=== PATIENT | female | born 1990 | race American Indian/Alaskan Native ===

== ENCOUNTER 2017-04-26 08:35 | Emergency (ER) | payer OTHER ==
[2017-04-26] MEDS ORDERED: NACL 0.9% 1000 ML 1,000 ML IV ONE (10:29)
[2017-04-26] MEDS ORDERED: NACL ONE (10:34)
--- NOTE | 2017-04-26 10:47 | Emergency Department Report ---
ED ENT HPI - General Chief complaint: Sore Throat Stated complaint: SORE THROAT/EAR PAIN Time Seen by Provider: 04/26/17 10:22 Source: patient Mode of arrival: Ambulatory Limitations: No Limitations - History of Present Illness Initial comments: PT c/o sore throat x 2 days. PT also reports R ear pain. PT states she had a sore throat 2 weeks ago and she thought she had strep throat but she was not seen. PT c/o fatigue and subjective fever. MD complaint: sore throat Onset/Timin -: Gradual, days(s) Location: R ear, throat Severity: severe Severity scale (0 -10): 8 Quality: sharp Consistency: constant Improves with: none Worsens with: swallowing, eating, other (talking ) Associated Symptoms: fever (subjective ), pain with swallowing, sore throat, discharge from ear (feels water leaking ). denies: rhinorrhea - Related Data Previous Rx's Medication Instructions Recorded Last Taken Type Amoxicillin/K Clav Tab [Augmentin 1 tab PO Q12HR #20 tab 04/26/17 Unknown Rx 875 mg] HYDROcodone/APAP 5-325 [[place] 1 each PO Q6HR PRN #14 tablet 04/26/17 Unknown Rx 5/325] Ibuprofen [Motrin] 600 mg PO Q8H PRN #15 tablet 04/26/17 Unknown Rx methylPREDNISolone [Medrol] 4 mg PO DAILY #1 tab.ds.pk 04/26/17 Unknown Rx Allergies Allergy/AdvReac Type Severity Reaction Status Date / Time No Known Allergies Allergy Verified 04/26/17 10:43 ED Dental HPI - General Chief complaint: Sore Throat Stated complaint: SORE THROAT/EAR PAIN Time Seen by Provider: 04/26/17 10:22 Source: patient Mode of arrival: Ambulatory Limitations: No Limitations - Related Data Previous Rx's Medication Instructions Recorded Last Taken Type Amoxicillin/K Clav Tab [Augmentin 1 tab PO Q12HR #20 tab 04/26/17 Unknown Rx 875 mg] HYDROcodone/APAP 5-325 [[place] 1 each PO Q6HR PRN #14 tablet 04/26/17 Unknown Rx 5/325] Ibuprofen [Motrin] 600 mg PO Q8H PRN #15 tablet 04/26/17 Unknown Rx methylPREDNISolone [Medrol] 4 mg PO DAILY #1 tab.ds.pk 04/26/17 Unknown Rx Allergies Allergy/AdvReac Type Severity Reaction Status Date / Time No Known Allergies Allergy Verified 04/26/17 10:43 ED Review of Systems ROS: Stated complaint: SORE THROAT/EAR PAIN Other details as noted in HPI Comment: All other systems reviewed and negative Constitutional: fever. denies: chills ENT: as per HPI, ear pain, throat pain Respiratory: denies: cough Gastrointestinal: denies: abdominal pain, nausea, vomiting Genitourinary: denies: abnormal menses ED Past Medical Hx - Past Medical History Previous Medical History?: Yes Additional medical history: sore throat pain - Surgical History Past Surgical History?: No - Social History Smoking Status: Never Smoker Substance Use Type: Alcohol, Non Opiate Pain, Prescribed - Medications Home Medications: Home Medications Medication Instructions Recorded Confirmed Last Taken Type Amoxicillin/K Clav Tab [Augmentin 1 tab PO Q12HR #20 tab 04/26/17 Unknown Rx 875 mg] HYDROcodone/APAP 5-325 [[place] 1 each PO Q6HR PRN #14 tablet 04/26/17 Unknown Rx 5/325] Ibuprofen [Motrin] 600 mg PO Q8H PRN #15 tablet 04/26/17 Unknown Rx methylPREDNISolone [Medrol] 4 mg PO DAILY #1 tab.ds.pk 04/26/17 Unknown Rx ED Physical Exam - General Limitations: No Limitations General appearance: alert, in no apparent distress - Head Head exam: Present: atraumatic, normocephalic, normal inspection - Eye Eye exam: Present: normal appearance, PERRL. Absent: conjunctival injection - ENT ENT exam: Present: mucous membranes moist, TM's normal bilaterally, normal external ear exam - Expanded ENT Exam Expanded Mouth exam: Absent: drooling, trismus Throat exam: Positive: tonsillar erythema, tonsillomegaly, tonsillar exudate, R peritonsillar mass - Neck Neck exam: Present: normal inspection, tenderness, full ROM, lymphadenopathy - Respiratory Respiratory exam: Present: normal lung sounds bilaterally. Absent: respiratory distress, chest wall tenderness - Cardiovascular Cardiovascular Exam: Present: normal rhythm, normal heart sounds - GI/Abdominal GI/Abdominal exam: Present: soft. Absent: tenderness - Extremities Exam Extremities exam: Present: normal inspection, full ROM - Back Exam Back exam: Present: normal inspection, full ROM. Absent: tenderness, CVA tenderness (R), CVA tenderness (L) - Neurological Exam Neurological exam: Present: alert, oriented X3 - Psychiatric Psychiatric exam: Present: normal affect, normal mood - Skin Skin exam: Present: warm, dry, intact ED Course Vital Signs 04/26/17 04/26/17 08:54 14:13 Temperature 98.9 F 98.9 F Pulse Rate 75 72 Respiratory 16 18 Rate Blood Pressure 120/82 Blood Pressure 129/83 [Left] O2 Sat by Pulse 100 100 Oximetry - Reevaluation(s) Reevaluation #1: 04/26/17 10:47 PT is aware of abnormal PE findings and plan of care. PT h as no questions at this time. Reevaluation #2: 04/26/17 12:52 PT states she is feeling better. PT aware of dx. PT agrees to further evaluation by ENT. PT aware this will may mean transfer to a facility with ent coverage 04/26/17 12:53 Dr Verdugo aware of pt and agrees with plan of care. Reevaluation #3: 04/26/17 13:[address] Bar's recommendations. PT agrees with plan of care. PT given strict return precautions. PT educated on the importance of strict antibiotic compliance - Consultations Consultation #1: 04/26/17 13:10 DR Bar, [facility], Spoke with Dr Bar regarding pt and CT report. Dr Bar advises out pt treatment at this time because developing abscess is 1 cm, it is not needing urgent drainage and may resolve on it's own. Dr Bar encouraged pt to follow up with the out pt [facility] - Pulse Oximetry Interpretation Digit-Finger Initial Pulse Oximetry Readin Actions Taken: none ED Medical Decision Making - Lab Data Result diagrams: 04/26/17 10:33 04/26/17 10:33 Labs 04/26/17 04/26/17 04/26/17 10:33 10:33 10:33 WBC 10.9 RBC 3.72 Hgb 11.7 Hct 35.2 MCV 95 MCH 31 MCHC 33 RDW 14.7 Plt Count 237 Lymph % (Auto) 13.2 L Dunn % (Auto) 7.0 Eos % (Auto) 0.6 Baso % (Auto) 0.7 Lymph # 1.4 Dunn # 0.8 Eos # 0.1 Baso # 0.1 Seg Neutrophils % 78.5 H Seg Neutrophils # 8.6 H Sodium 138 Potassium 4.6 Chloride 104.0 Carbon Dioxide 22 Anion Gap 17 BUN 10 Creatinine 0.6 L Estimated GFR > 60 BUN/Creatinine Ratio 16.66 Glucose 85 Calcium 8.6 HCG, Qual Negative - Radiology Data Radiology results: report reviewed CT soft tissue neck - early [employer], R - Differential Diagnosis strep throat, pharyngitis, [employer]ER Critical Care Time: No Critical care attestation.: If time is entered above; I have spent that time in minutes in the direct care of this critically ill patient, excluding procedure time. ED Disposition Clinical Impression: Peritonsillar abscess, Strep pharyngitis Disposition: TO HOME OR SELFCARE Is pt being admited?: No Does the pt Need Aspirin: No Condition: Stable Instructions: Peritonsillar Abscess (ED), Strep Throat (ED) Additional Instructions: No driving or alcohol after taking [place] Return to the ED immediately if you feel worse, have more swelling to your throat, are unable to swallow or have other concerns Strep throat is contagious, make sure all your dishes/ utensils are washed and change your toothbrush Call [facility] to set up a follow up appointment - call today [phone] Prescriptions: Amoxicillin/K Clav Tab [Augmentin 875 mg] 1 tab PO Q12HR #20 tab HYDROcodone/APAP 5-325 [[place] 5/325] 1 each PO Q6HR PRN #14 tablet PRN Reason: Pain Ibuprofen [Motrin] 600 mg PO Q8H PRN #15 tablet PRN Reason: Pain methylPREDNISolone [Medrol] 4 mg PO DAILY #1 tab.ds.pk Referrals: PRIMARY CAREMD [Primary Care Provider] - 3-5 Days MEDARDO VILLALPANDO MD [Staff Physician] - 3-5 Days [facility] [Outside] - 3-5 Days Forms: Accompanied Note, Work/School Release Form(ED) Time of Disposition: 13:22
[2017-04-26] MEDS ORDERED: ZOFRAN IV ONE (10:50)
[2017-04-26] MEDS ORDERED: MORPHINE IV ONE (10:50)
[2017-04-26 11:00] LABS: Anion Gap 17 mmol/L; BUN/Creatinine Ratio 16.66; Blood Urea Nitrogen 10 mg/dL (7-17); Calcium 8.6 mg/dL (8.4-10.2); Carbon Dioxide 22 mmol/L (22-30); Glucose 85 mg/dL (65-100); Potassium 4.6 mmol/L (3.6-5.0); Sodium 138 mmol/L (137-145)
[2017-04-26 11:04] LABS: Basophils % (Auto) 0.7 % (0.0-1.8); Eosinophils % (Auto) 0.6 % (0.0-4.3); Hematocrit 35.2 % (30.3-42.9); Hemoglobin 11.7 gm/dl (10.1-14.3); Mean Corpuscular HGB Conc 33 % (30-34); Mean Corpuscular Hemoglobin 31 pg (28-32); Mean Corpuscular Volume 95 fl (79-97); Platelet Count 237 K/mm3 (140-440); Red Blood Count 3.72 M/mm3 (3.65-5.03); Red Cell Distribution Width 14.7 % (13.2-15.2); White Blood Count 10.9 K/mm3 (4.5-11.0)
[2017-04-26] MEDS ORDERED: ROCEPHIN/NS 1 GM/50 ML 1 GM/50 ML BAG IV ONE (11:21)
[2017-04-26] MEDS ORDERED: TORADOL IV ONE (11:21)
--- NOTE | 2017-04-26 12:31 | Cat Scan Report ---
CT scan of neck with IV contrast: History: Right tonsillar mass. Findings: There is noted enlarged right palatine tonsil with ill-defined central area of low attenuation measuring 1 cm in diameter. No definite enlargement of left palatine tonsil or the lingular tonsils. Normal airway. There is enlargement noted of the right anterior jugular lymph node which measures 2 cm in diameter with central area of low attenuation. Normal vascular structures. Normal submandibular salivary glands and parotid glands. Impression: Right acute tonsillitis with developing abscess. Associated enlarged right anterior jugular inflammatory/infected lymph node node.
[2017-04-26 14:14] VITALS: BP 129/83
== END 2017-04-26 14:12 | disposition home or self-care (01) ==
LOC: ED 08:35
DX: J36 Peritonsillar abscess (principal)
CPT/HCPCS: 36415; 70491; 80048; 84703; 85025; 87430; 96365; 96375; 99284; J0696; J1885; J2270; J2405; J2930; J7030; Q9967

== ENCOUNTER 2018-05-03 11:41 | Emergency (ER) | payer OTHER ==
[2018-05-03 12:03] VITALS: BP 115/64
--- NOTE | 2018-05-03 12:53 | Emergency Department Report ---
ED Female HPI - General Chief complaint: Vaginal Bleeding Stated complaint: BLEEDING AND Time Seen by Provider: 05/03/18 12:39 Source: patient Mode of arrival: Ambulatory Limitations: No Limitations - History of Present Illness Initial comments: This is a 28-year-old -[place] female presents with vaginal bleeding for 2 days. Patient reports she is 6-7 weeks and not followed by OB/ [facility]. Patient confirmed . confirmed at 04/10/2018 but unable to follow up with [facility] until Medicaid is approved. She reports noticing blood on tissue when she wipes for the past 2 days. She denies passing blood clots or bleeding that require wearing peripads. She is having sharp pains from suprapubic area radiating to bilateral low back. Last menstrual period was 03/14/2018, A. denies fever, nausea or vomiting, chest pain, shortness of breath, vaginal discharge, dysuria , frequency, and urgency. MD Complaint: vaginal bleeding Onset/Timin -: days(s) Location: suprapubic Radiation: L flank, R flank Severity: mild Severity scale (0 -10): 3 Quality: sharp Consistency: intermittent Improves with: none Worsens with: none Are you Now?: Yes Last Menstrual Period: 03/14/18 EDC: 12/19/18 Associated Symptoms: vaginal bleeding. denies: vaginal discharge, abdominal pain, nausea/vomiting, fever/chills, headaches, loss of appetite, dysuria, hematuria, rash, seizure, shortness of breath, syncope, weakness - Related Data Sexually active: Yes : 1 Para: 0 A: 0 Previous Rx's Medication Instructions Recorded Last Taken Type Amoxicillin/K Clav Tab [Augmentin 1 tab PO Q12HR #20 tab 04/26/17 Unknown Rx 875 mg] HYDROcodone/APAP 5-325 [[place] 1 each PO Q6HR PRN #14 tablet 04/26/17 Unknown Rx 5/325] Ibuprofen [Motrin] 600 mg PO Q8H PRN #15 tablet 04/26/17 Unknown Rx methylPREDNISolone [Medrol] 4 mg PO DAILY #1 tab.ds.pk 04/26/17 Unknown Rx Nitrofurantoin Macrocrystal 100 mg PO BID #10 capsule 05/03/18 Unknown Rx [Macrodantin] Allergies Allergy/AdvReac Type Severity Reaction Status Date / Time No Known Allergies Allergy Verified 04/26/17 10:43 ED Review of Systems ROS: Stated complaint: BLEEDING AND Other details as noted in HPI Constitutional: denies: chills, fever Respiratory: denies: cough, shortness of breath, wheezing Cardiovascular: denies: chest pain, palpitations Gastrointestinal: abdominal pain (intermittent suprapubic sharp pains). denies : nausea, vomiting, diarrhea, constipation, hematemesis, melena, hematochezia Genitourinary: hematuria. denies: urgency, dysuria, frequency, discharge, abnormal menses, dyspareunia Musculoskeletal: back pain (bilateral low back pain). denies: joint swelling, arthralgia Skin: denies: rash, lesions Neurological: denies: headache, weakness, paresthesias Psychiatric: denies: anxiety, depression ED Past Medical Hx - Past Medical History Previous Medical History?: Yes Additional medical history: sore throat pain - Surgical History Past Surgical History?: No - Social History Smoking Status: Former Smoker Substance Use Type: None - Medications Home Medications: Home Medications Medication Instructions Recorded Confirmed Last Taken Type Amoxicillin/K Clav Tab [Augmentin 1 tab PO Q12HR #20 tab 04/26/17 Unknown Rx 875 mg] HYDROcodone/APAP 5-325 [[place] 1 each PO Q6HR PRN #14 tablet 04/26/17 Unknown Rx 5/325] Ibuprofen [Motrin] 600 mg PO Q8H PRN #15 tablet 04/26/17 Unknown Rx methylPREDNISolone [Medrol] 4 mg PO DAILY #1 tab.ds.pk 04/26/17 Unknown Rx Nitrofurantoin Macrocrystal 100 mg PO BID #10 capsule 05/03/18 Unknown Rx [Macrodantin] ED Physical Exam - General Limitations: No Limitations General appearance: alert, in no apparent distress - Respiratory Respiratory exam: Present: normal lung sounds bilaterally. Absent: respiratory distress - Cardiovascular Cardiovascular Exam: Present: regular rate, normal rhythm. Absent: systolic murmur, diastolic murmur, rubs, gallop - GI/Abdominal GI/Abdominal exam: Present: soft, normal bowel sounds. Absent: distended, tenderness, guarding, rebound, rigid, organomegaly, mass - Back Exam Back exam: Present: normal inspection, full ROM. Absent: CVA tenderness (R), CVA tenderness (L), muscle spasm, rash noted - Neurological Exam Neurological exam: Present: alert, oriented X3 - Psychiatric Psychiatric exam: Present: normal affect, normal mood - Skin Skin exam: Present: warm, dry, intact, normal color. Absent: rash ED Course Vital Signs 05/03/18 11:59 Temperature 98.3 F Pulse Rate 72 Respiratory 18 Rate Blood Pressure 115/64 O2 Sat by Pulse 99 Oximetry ED Medical Decision Making - Lab Data Result diagrams: 05/03/18 13:17 - Radiology Data Radiology results: report reviewed EXAM: US OB TRANSVAGINAL HISTORY: vaginal bleeding during TECHNIQUE: Grayscale and color doppler ultrasound imaging of the pelvis was performed transvaginally. PRIORS: None. FINDINGS: Uterus: The uterus is homogeneous in echogenicity without focal mass. The uterus measures 8.8 x 3.5 x 6.0 centimeters. An intrauterine gestational sac is seen. No yolk sac or embryonic pole was identified. Mean sac diameter is 0.45 centimeters corresponding with an estimated gestational age of 5 weeks and 2 days. Ovaries: Probable small left ovarian corpus luteal cyst is seen. Small right ovarian follicle is seen. Normal flow is seen to the ovaries. The right ovary measures 3.2 x 2.1 x 1.9 centimeters. The left ovary measures 3.9 x 1.9 x 1.7 centimeters. Free fluid: None. IMPRESSION: Intrauterine gestational sac without embryonic pole or yolk sac identified. Estimated gestational age based on mean sac diameter is 5 weeks and 2 days with an JASVIR of 01/01/2019. Recommend followup pelvic ultrasound to confirm viability. - Medical Decision Making This is a 28 y.o. female that presents with vaginal bleeding for 2 days. Patient is stable and was examined by me. Vitals normal. Obtained CBC, hCG quant , & UA. HCG Quant 1309. Urinalysis trace leukocytes, elevated WBCs, small epithelia cells, and large amount of blood. Transvaginal US of abdomen obtained , Intrauterine gestational sac without embryonic pole or yolk sac identified. Estimated gestational age based on mean sac diameter is 5 weeks and 2 days with an JASVIR of 01/01/2019. Recommend followup pelvic ultrasound to confirm viability. Start Macrobid 100 mg by mouth twice a day 5 days for urinary tract infection. Discussed plan with patient and agreed to plan. No further questions noted by the patient. Discharged home in stable condition. Referrals to [facility]. Follow up with PCP in 2-3 days. Critical care attestation.: If time is entered above; I have spent that time in minutes in the direct care of this critically ill patient, excluding procedure time. ED Disposition Clinical Impression: Threatened miscarriage in early , Vaginal bleeding affecting early Disposition: TO HOME OR SELFCARE Is pt being admited?: No Does the pt Need Aspirin: No Condition: Stable Instructions: Threatened Miscarriage (ED) Additional Instructions: Increase fluid intake to 1-2 L daily. Have a repeat hCG quant and US in 24-48 hours. Your hCG quant is 1309 on today visit. Follow up with [facility]ING [facility]IST. Prescriptions: Nitrofurantoin Macrocrystal [Macrodantin] 100 mg PO BID #10 capsule Referrals: [facility] [Provider Group] - 3-5 Days [facility] [Provider Group] - 3-5 Days [facility] [Outside] - 3-5 Days Time of Disposition: 16:40 Print Language: CZECH
[2018-05-03 13:32] LABS: Hematocrit 35.1 % (30.3-42.9); Mean Corpuscular HGB Conc 34 % (30-34); Mean Corpuscular Hemoglobin 33 pg (28-32); Mean Corpuscular Volume 96 fl (79-97); Platelet Count 222 K/mm3 (140-440); Red Blood Count 3.65 M/mm3 (3.65-5.03)
[2018-05-03 14:56] LABS: Bacteria,Urine 1+ /HPF (Negative); Bilirubin,Urine NEG (Negative); Blood,Urine LG (Negative); Color,Urine Amber (Yellow); Mucus,Urine 3+ /HPF
--- NOTE | 2018-05-03 16:21 | Ultrasound Report ---
FINAL REPORT EXAM: US OB < = 14 WEEKS FETUS HISTORY: vaginal bleeding during TECHNIQUE: Grayscale and color doppler ultrasound imaging of the pelvis was performed transabdominally. PRIORS: None. FINDINGS: The uterus measures 8.8 x 3.5 x 6.0 centimeters. No intrauterine or ectopic was seen on the study. The endometrium measures approximately 1.2 centimeters in thickness. The ovaries were not definitively seen. No free fluid. IMPRESSION: Limited transabdominal pelvic ultrasound.
--- NOTE | 2018-05-03 16:24 | Ultrasound Report ---
FINAL REPORT EXAM: US OB TRANSVAGINAL HISTORY: vaginal bleeding during TECHNIQUE: Grayscale and color doppler ultrasound imaging of the pelvis was performed transvaginally. PRIORS: None. FINDINGS: Uterus: The uterus is homogeneous in echogenicity without focal mass. The uterus measures 8.8 x 3.5 x 6.0 centimeters. An intrauterine gestational sac is seen. No yolk sac or embryonic pole was identified. Mean sac diameter is 0.45 centimeters corresponding with an estimated gestational age of 5 weeks and 2 days. Ovaries: Probable small left ovarian corpus luteal cyst is seen. Small right ovarian follicle is seen. Normal flow is seen to the ovaries. The right ovary measures 3.2 x 2.1 x 1.9 centimeters. The left ovary measures 3.9 x 1.9 x 1.7 centimeters. Free fluid: None. IMPRESSION: Intrauterine gestational sac without embryonic pole or yolk sac identified. Estimated gestational age based on mean sac diameter is 5 weeks and 2 days with an JASVIR of 01/01/2019. Recommend followup pelvic ultrasound to confirm viability.
== END 2018-05-03 17:10 | disposition home or self-care (01) ==
LOC: ED 11:41
DX: O20.0 Threatened abortion (principal); F17.200 Nicotine dependence, unspecified, uncomplicated; Z3A.01 Less than 8 weeks gestation of pregnancy
CPT/HCPCS: 36415; 76801; 76817; 81001; 84702; 85027

== ENCOUNTER 2022-07-22 10:55 | Outpatient (CLI) | payer MEDICAID ==
[2022-07-22 11:32] LABS: Basophils # (Auto) 0.1 K/mm3 (0.0-0.1); Basophils % (Auto) 1.2 % (0.0-1.8); Eosinophils # (Auto) 0.1 K/mm3 (0.0-0.4); Eosinophils % (Auto) 1.1 % (0.0-4.3); Hematocrit 36.2 % (30.3-42.9); Hemoglobin 11.6 gm/dl (10.1-14.3); Lymphocytes # (Auto) 1.9 K/mm3 (1.2-5.4); Lymphocytes % (Auto) 23.6 % (13.4-35.0); Mean Corpuscular HGB Conc 32 % (30-34); Mean Corpuscular Volume 86 fl (79-97); Monocytes # (Auto) 0.5 K/mm3 (0.0-0.8); Monocytes % (Auto) 6.7 % (0.0-7.3); Platelet Count 307 K/mm3 (140-440); Red Blood Count 4.21 M/mm3 (3.65-5.03); Red Cell Distribution Width 15.9 % (13.2-15.2)
[2022-07-22 12:04] LABS: Alanine Aminotransferase 15 units/L (7-56); Albumin 3.9 g/dL (3.9-5); Blood Urea Nitrogen 17 mg/dL (7-17); Calcium 8.8 mg/dL (8.4-10.2); Chol/HDL Ratio 3.41 %; HDL Cholesterol 67 mg/dL (40-59); Hemolysis Index 6; Iron 37 ug/dL (37-170); LDL Cholesterol,Direct 147 mg/dL (50-130)
[2022-07-22 12:09] LABS: BUN/Creatinine Ratio 24
== END 2022-07-22 10:56 | disposition home or self-care (01) ==
LOC: LAB 10:55
PROVIDERS: ATTEND Surgery
DX: Z01.812 Encounter for preprocedural laboratory examination (principal); E55.9 Vitamin D deficiency, unspecified; K30 Functional dyspepsia; E66.01 Morbid (severe) obesity due to excess calories; Z13.29 Encounter for screening for other suspected endocrine disorder; Z13.1 Encounter for screening for diabetes mellitus; Z13.21 Encounter for screening for nutritional disorder
CPT/HCPCS: 36415; 80053; 80061; 82306; 82607; 82728; 83036; 83540; 84443; 85025; 85730